=== PATIENT | female | born 1985 | race Hispanic/Latino ===

== ENCOUNTER 2018-10-30 04:38 | Inpatient (IN) | payer OTHER ==
[2018-10-29 13:15] LABS: RPR Titer ND
[2018-10-29 13:20] LABS: Urine Appearance CLEAR; Urine Bilirubin NEGATIVE (NEG); Urine Blood NEGATIVE (NEG); Urine Color YELLOW; Urine Glucose NEGATIVE (NEG); Urine Protein NEGATIVE (NEG); Urine Urobilinogen 0.2 mg/dL (0.2-1.0)
[2018-10-29 13:23] LABS: Absolute Lymphocytes (CBC) 1.2 K/uL (0.7-4.9); Absolute Monocytes 0.5 K/uL (0.1-1.3); Absolute Neutrophil 6.7 K/uL (1.8-8.0); Basophils % 0.3 % (0-1.3); Eosinophils % 0.9 % (0-4.4); Hematocrit 32.5 % (36.0-45.0); Lymphocytes % 14.5 % (15.3-44.8); MPV 9.6 fL (7.6-11.3); Monocytes % 5.5 % (3.3-12.3)
[2018-10-29 13:37] LABS: Protime INR 0.93
[2018-10-29 13:39] LABS: Urine Microscopic Reflex ORDER UMIC
[2018-10-29 13:49] LABS: Urine Bacteria <20 /HPF (<20); Urine Culture Reflex Order REFLEXED; Urine Mucus 2+ /HPF (NONE SEEN); Urine RBC <5 /HPF (NONE SEEN)
--- NOTE | 2018-10-29 15:58 | PREOPHP ---
Date of Admission: 10/30/2018 History Of Present Illness: This is a 33-year-old 3, para 2, will be 39 weeks tomorrow, has been breech to the last 3 visits here in the office, rotation attempt at [facility] offered, but declined. Infection, blood loss, anesthetic complications, injury to bladder, bowel, ureter, postoperative com plications, clots in legs, and pneumonia discussed. The patient knows fully well this does not const itute all the possible problems that could occur during the following surgery. The patient did not t ell us that she had a bilateral cystectomy in [place] in 2005 where they used the incision a nd she was in the hospital for 2 days, benign cyst. Family History: Father with hypertension and diabetes. Allergies: NO ALLERGIES. Medications: vitamins prior to admission. Social History: Does not smoke. Physical Examination: HEENT: Clear. Pupils equal, round, and reactive to light and accommodation. Conjunctivae well perf used. No oral, lingual, or buccal lesions. Chest and Lungs: Clear. Breasts: Not examined. Abdomen: Term size. Baby is still high. I cannot catch it. Cervix is fingertip. Extremities: Clear without edema, cyanosis, or clubbing. Plan: We will get a flat plate of the abdomen tomorrow to verify breech presentation. If it is sandra ch, proceed on with surgery; if not, cancel surgery. ROGELIO/CRISTOBAL Voice ID: [id number]
[2018-10-29 21:55] LABS: RPR (Rapid Plasma Reagin) NON-REACT (NON-REACT)
[~2018-10-30 04:38] MED LIST: Ringers Lactate 1,000 ML IV PRN; Ringers Lactate 1,000 ML IV SCH
[2018-10-30 05:26] VITALS: BP 140/74; TEMP 98.5; BMI 39.6
[2018-10-30] MEDS ORDERED: Ringers Lactate 1,000 ML IV ONE (05:40)
--- NOTE | 2018-10-30 08:48 | RAD REPORT ---
EXAM DESCRIPTION: RAD - Abdomen 1 View (KUB) - 10/30/2018 5:00 am CLINICAL HISTORY: . Assess presentation FINDINGS: in cephalic presentation. Spine maternal left
--- NOTE | 2018-10-30 11:40 | PN ---
The patient was set for today because of breech presentation, however, flat plate of the ab domen demonstrates the baby is vertex. Baby is still extremely high. I cannot reach with my examini ng finger. Cervix is posterior, 1 to 1.5 cm. She is not in labor. The baby looks good. After disc ussion with the patient and family, it is decided that we should not induce as the cervix is very unf avorable and the baby is not in a good position. We will see her back on Monday in my office and dec cece what we should do. She knows that the baby has a very unstable lie and could change back into a breech presentation without her even knowing it, and that if she goes into labor, she is to come up h ere immediately so we can assess the baby's position. Full discussion with the patient and . They are in agreement. Dismissed to report back to my office on Monday, sooner if labor. ROGELIO/CRISTOBAL Voice ID: [id number] Report ID: [id number]
[2018-11-02 04:10] LABS: HBsAG Nonreactive (Nonreactive)
== END 2018-10-30 07:00 | disposition home or self-care (01) | DRG 833 ==
LOC: 2ND-WC 04:38
PROVIDERS: ADMIT Specialist; ATTEND Specialist
DX: O32.1XX0 Maternal care for breech presentation, not applicable or unspecified (principal); Z53.8 Procedure and treatment not carried out for other reasons; Z3A.39 39 weeks gestation of pregnancy
CPT/HCPCS: 36415; 74018; 81003; 81015; 85025; 85610; 85730; 86592; 86900; 86901; 87086; 87088; 87340; 99218

== ENCOUNTER 2018-11-04 04:40 | Inpatient (IN) | payer OTHER ==
[2018-11-04] MEDS ORDERED: Ringers Lactate 1,000 ML IV PRN (05:28)
[2018-11-04] MEDS ORDERED: METHYLERGONOVINE 0.2MG/ML AMP IM PRN (05:28)
[2018-11-04] MEDS ORDERED: Ringers Lactate 1,000 ML IV SCH (06:00)
[2018-11-04 06:15] LABS: RPR Titer ND
[2018-11-04 06:18] LABS: Absolute Lymphocytes (CBC) 1.4 K/uL (0.7-4.9); Absolute Monocytes 0.7 K/uL (0.1-1.3); Basophils % 0.2 % (0-1.3); Eosinophils % 0.6 % (0-4.4); Hematocrit 34.5 % (36.0-45.0); Lymphocytes % 12.5 % (15.3-44.8); MPV 10.3 fL (7.6-11.3); RBC Red Blood Cell Count 3.88 M/uL (3.86-4.86)
[2018-11-04 06:21] LABS: Urine Appearance CLOUDY; Urine Bilirubin NEGATIVE (NEG); Urine Blood 3+ (NEG); Urine Color YELLOW; Urine Glucose NEGATIVE (NEG); Urine Protein NEGATIVE (NEG); Urine Urobilinogen 0.2 mg/dL (0.2-1.0); Urine pH 7.5 (5.0-7.0)
[2018-11-04] MEDS ORDERED: PROMETHAZINE 25 MG/ML VIAL IM PRN (06:33)
[2018-11-04] MEDS ORDERED: BUTORPHANOL 1 MG/ML INJ IV PRN (06:33)
[2018-11-04 06:37] LABS: Urine Microscopic Reflex ORDER UMIC
[2018-11-04 06:45] LABS: Urine Bacteria >50 /HPF (<20); Urine Culture Reflex Order NOT NEEDED
[2018-11-04] MEDS ORDERED: PROMETHAZINE 25 MG/ML VIAL ONE (06:54)
[2018-11-04] MEDS ORDERED: BUTORPHANOL 1 MG/ML INJ ONE (06:54)
[2018-11-04] MEDS ORDERED: OXYTOCIN/LR 20 UNIT/1,000 ML BAG IV SCH ×2 (07:00→12:00)
[2018-11-04 07:01] VITALS: BMI 39.6
[2018-11-04] MEDS ORDERED: ROPIVACAINE HCL 100 ML IV PRN (07:19)
[2018-11-04] MEDS ORDERED: HYDRALAZINE HCL 20 MG/ML VIAL IV ONE (07:30)
--- NOTE | 2018-11-04 07:49 | PREOPHP ---
Date of Admission: 11/04/2018 Shonda Hughes, 33-year-old 3, para 2, 40 weeks 2 days, scheduled for possible induction this we ek. Comes in an early labor. Noted to be 3-1/2 to 4. Baby definitely vertex but still high at -2 s tation. She was francheska every 3 to 4 minutes. That has spaced out. Now Pitocin has been starte d again. At her request, she was given Stadol 1 mg IV, Phenergan 25 mg IM. We need to reinstitute a more active labor pattern. She is Rh positive, immune to Rubella. Negative beta strep screen. Ful l labor talk given. The patient will be requesting epidural once we get into a more active labor and the baby comes down. discussion and talk with and patient. ROGELIO/CRISTOBAL Voice ID: [id number]
[2018-11-04] MEDS ORDERED: FENTANYL CITR 100 MCG/2 ML IV ONE (08:00)
[2018-11-04] MEDS ORDERED: ROPIVACAINE HCL 0.2% 20ML AMP IV ONE (08:00)
[2018-11-04] MEDS ORDERED: LIDOCAINE 1% 20 ML MDV ONE (11:04)
[2018-11-04] MEDS ORDERED: Oxycodone HCl/Acetaminophen 1 TAB TAB PO PRN ×2 (11:27)
[2018-11-04] MEDS ORDERED: ACETAMINOPHEN 500 MG TAB PO PRN (11:27)
[2018-11-04] MEDS ORDERED: DIPHENHYDRAMINE 25 MG TAB/CAP PO PRN (11:27)
[2018-11-04] MEDS ORDERED: DOCUSATE NA/SENNA CONC 1 TAB PO PRN (11:27)
[2018-11-04] MEDS ORDERED: BISACODYL 10 MG RECTAL SUPP RECT PRN (11:27)
[2018-11-04] MEDS ORDERED: CARBOPROST TROME 250 MCG/ML IM ONE (11:36)
[2018-11-04] MEDS ORDERED: miSOPROStol 100 MCG TAB PO ONE (12:40)
[2018-11-04] MEDS ORDERED: OXYTOCIN 10 UNIT/ML ML IV ONE (13:10)
--- NOTE | 2018-11-04 14:02 | PN ---
The patient told nurse her pain level was 8 to 9, so epidural was ordered. Patient has shown no vaughan ge. She is still 3-1/2 to 4. Baby is still very high, -2 station. Baby looks good on the monitor, is starting to wake up from the effects of the Stadol. We will continue to increase the Pitocin unti l we get a good labor pattern and until we get some descent of the vertex. ROGELIO/CRISTOBAL Voice ID: [id number] Report ID: [id number]
[2018-11-04] MEDS ORDERED: miSOPROStol 100 MCG TAB PO SCH (15:00)
[2018-11-04] MEDS: IBUPROFEN 200 MG TAB PO PRN (15:37)
--- NOTE | 2018-11-04 17:16 | OP ---
Surgeon: Mejia Olvera MD Shonda Hughes is a 33-year-old, 3, para 2, at approximately 40 weeks gestation, came in early l abor, 3.5 to 4 on admission. Vertex still high in the pelvis. Membranes bulging, but definitely jayne juju, was given Stadol 1 mg IV, Phenergan 25 mg IM x1. Contractions spaced out somewhat. She was sta rted on Pitocin, and at that point, requested epidural anesthesia, which was instituted by Dr. Wilson. Epidural gave good relief. The patient went rapidly to complete. Spontaneous vaginal delivery of a 7 pounds 14 ounces female. A true knot in the cord, but not tight. I think I detected a slight odo r, but nurses said they could not confirm this. The patient was afebrile and basically normal white count on admission. After approximately 15 minutes, placenta delivered spontaneously, thought to hav e a possible mild marginal abruption, completely intact, sent to Pathology. Estimated blood loss 400 -450 cc. Mild hypertonus. Hemabate ordered and given. Rh positive, immune to Rubella, negative bet a strep screen. Tolerated all procedures well. Final Diagnoses: Term intrauterine at approximately 40 weeks, spontaneous labor, vaginal d elivery, epidural anesthesia, mild uterine hypotonus, possible marginal abruption - minimal. ROGELIO/CRISTOBAL Voice ID: [id number] Report ID: [id number]
[2018-11-04] MEDS: miSOPROStol 100 MCG TAB PO SCH ×2 (19:08→23:02)
--- NOTE | 2018-11-04 23:12 | OP ---
Surgeon: Mejia Olvera MD I was called by the nurses said that the lochia is a bit heavier than she liked. I ordered Cytotec 1 00 mcg to be given prior to my getting there and an epidural to be reinstituted. When I got to labor and delivery, the patient was quite stable. Lochia is a little bit heavier than normal and still qu ite dark. The patient was given 5 cc of ropivacaine into her epidural catheter, 2 g of Ancef was ord ered, prepping and draping was performed. Again, no laceration seen. Intrauterine exam demonstrated a large organized clot sitting in a cervical os and the canal. This was removed manually. Uterus w as explored. No further tissue was seen. Good hemostasis. Uterus contracted down well. We will ke ep the patient on IV little bit longer than normal, start her on p.o. Cytotec and monitor carefully. I think this should take care of the bleeding, which I only saw about 150 cc more from the time of sharla baron. Pulse is in the 70-80 range. Blood pressures are normal. She is quite stable. ROGELIO/CRISTOBAL Voice ID: [id number] Report ID: [id number]
[2018-11-05] MEDS: miSOPROStol 100 MCG TAB PO SCH (03:13)
[2018-11-05] MEDS: IBUPROFEN 200 MG TAB PO PRN (03:14)
[2018-11-05] MEDS ORDERED: Ringers Lactate 1,000 ML IV ONE (07:22)
[2018-11-05 12:21] VITALS: BP 138/77; TEMP 98.2
[2018-11-06 00:34] LABS: RPR (Rapid Plasma Reagin) NON-REACT (NON-REACT)
--- NOTE | 2018-11-06 05:45 | DS ---
Hospital Course: A 33-year-old 3, para 2, came in, in spontaneous labor at approximately 40 weeks, delivered uneventfully a 7 pounds 14 ounce female, Apgars 9 and 9. No episiotomy. No lacerat ion. Schultze delivery of the placenta which was inspected, possibly marginal small abruption, mild uterine hypotonus, 0.2. Hemabate given as the patient's blood pressures were initially elevated on a dmission. Estimated blood loss 400 to 450 cc. Placenta sent to Pathology. , the patient was noted to have a continued small amount of bleeding more than normal. I w as called back. After injecting the epidural, we then examined again, no lacerations. Intrauterine exam showed a large organized clot in the cervical os and canal. This was removed. Intrauterine exa m showed no retained products. Uterus contracted down well. The patient has done well since then. She is afebrile, ambulating, voiding. Lochia is normal. She is Rh positive, immune to Rubella. Neg ative beta strep screen. She was given Ancef after intrauterine exam. Tdap has been administered du ring the . She was dismissed later today to report back to my office in 6 weeks for followu p, to report any temperature elevation of 100 degrees or greater, severe pain, heavy bleeding, or any other type of abnormalities. Dismissed with tramadol for analgesia, although she may elect to take Motrin instead. Final Diagnoses: Term intrauterine at approximately 40 weeks, vaginal delivery, epidural a nesthesia, mild uterine hypotonus, organized clot in the cervical os with exam under epidural anesthe mandy, and period. ROGELIO/CRISTOBAL Voice ID: [id number] Report ID: [id number]
[2018-11-08 03:43] LABS: HBsAG Nonreactive (Nonreactive)
== END 2018-11-05 14:15 | disposition home or self-care (01) | DRG 768 ==
LOC: L&D 04:40 → 2ND-WC 05:39
PROVIDERS: ADMIT Specialist; ATTEND Specialist
PROC: 10E0XZZ Delivery of Products of Conception, External Approach (ICD-10-PCS; principal; 2018-11-04)
PROC: 0UCC7ZZ Extirpation of Matter from Cervix, Via Natural or Artificial Opening (ICD-10-PCS; 2018-11-04)
DX: O69.2XX0 Labor and delivery complicated by other cord entanglement, with compression, not applicable or unspecified (principal); Z37.0 Single live birth; O62.2 Other uterine inertia; Z3A.40 40 weeks gestation of pregnancy
CPT/HCPCS: 36415; 81003; 81015; 85025; 86592; 86850; 86900; 86901; 87340; 88307; J0595; J2210; J2550; J2590; J2795; J3010

== ENCOUNTER 2021-06-20 04:33 | Inpatient (IN) | payer OTHER ==
--- OUTSIDE RECORDS SUMMARY | 2021-06-20 05:33 | XMS REPORT | Continuity of Care Document ---
:1985 Author Organization [facility] [place] t Address [address] [place] [address] Dr. [address]. [address] [place] [address] Care Team Providers Name Role Phone Pcp, Does Not Have A Primary Care Physician Sathish HOLLINGSWORTH R Attending Clinician Unavailable NAJMA Attending Clinician Unavailable Mushtaq MENDENHALL Attending Clinician Unavailable Jasen Bridges MD Attending Clinician JASEN BRIDGES Attending Clinician Unavailable Doctor Unassigned, Name Attending Clinician Unavailable Mushtaq Barroso Attending Clinician Lab Attending Clinician Unavailable Payers Payer Name Policy Type Policy Number Effective Date Expiration Date S gordo [place] [id number] 2020 00:00:00 MEDICAID PENDING PENDING 2020 00:00:00 [facility] [id number] 2020 00:00:00 Advance Directives Directive Decision Effective Termination Comments Source Date Date Healthcare Agents on N/A [facility] FileNameRelationHu [facility] Agent Medical RelationshipCommunicationFerselect specialty hospital-pontiaco [facility] PhoenixnandezSaint [facility] Dover[facility] Care [phone] (Mobile) Romana TracytherFir [facility] [phone] (Mobile) Problems Condition Condition Condition Status Onset Resolution Last Treating Co mments Source Name Details Category Date Date Treatment Clinician Date History of History of Disease Active Overview : Univers 4-23 At 35 ity of delivery delivery 00:00: weeks due Robert as 00 to [facility] Medical Branch Abnormal Abnormal Disease Active Overview: Un ira maternal maternal 9-17 Passed ity of glucose glucose 00:00: early 3hr [place] tolerance, tolerance, 00 gtt Me dical antepartum antepartum Br anch History of History of Disease Active U nivers 9-14 ity of induced induced 00:00: [place] hypertensi hypertensi 00 Me dical on on Branch Multiparit Multiparit Disease Active U nivers y y 9-14 ity of 00:00: [place] 00 Medical Branch Supervisio Supervisio Disease Active U nivers n of n of 9-14 ity of high-risk high-risk 00:[place] Medi jayesh of elderly of elderly Br anch multigravi multigravi da da Obesity Obesity Disease Active Overview: Univ ers affecting affecting 8-26 ICD10 ity of 00:00: Diagnosis [place] 00 Term Medical Mail Distribution Clerk Branch Utility Supervisio Supervisio Disease Active Overview : Univers n of n of 8-26 Pap-NIL ity of normal normal 00:00: with [place] 00 absent [facility] ECC. Branch Repeat postpartu m. Body mass Body mass Disease Active 2006-07 Overview: Univers index index 2-26 Formattin ity of (BMI)30.0- (BMI)30.0- 00:00: g of this [place] 30.9, 30.9, 00 note Medical adult adult might be Branch different from the original. ICD10 Diagnosis Term Mail Distribution Clerk Utility Allergies, Adverse Reactions, Alerts Allergy Allergy Status Severity Reaction(s) Onset Inactive Treating Comm ents Source Name Type Date Date Clinician NO KNOWN Drug Active Univers ALLERGIE Class ity of S [facility] Social History Social Habit Start Date Stop Date Quantity Comments Source ASSERTION 2020-10-10 University of 00:00:00 [facility] Exposure to Not sure [facility] SARS-CoV-2 [facility] (event) Branch Alcohol intake 2020-12-30 2020-12-30 Current University of 00:00:00 00:00:00 non-drinker of [facility] alcohol Branch (finding) Tobacco use and 2013-03-11 2013-03-11 Never used Universit y of exposure 00:00:00 00:00:00 [facility] Sex [birth year] At [birth year] Universit y of 00:00:00 00:00:00 [facility] Smoking Status Start Date Stop Date Source Never smoker [facility] Medications Ordered Filled Start Stop Current Ordering Indication Dosage Frequency Signature Comments Components Source Medication Medication Date Date Medication? Clinician (SIG) Name Name aspirin 81 Yes [id number] 81mg Take 1 U nivers mg EC 6-16 tablet by ity of tablet 00:00: mouth [place] 00 daily. Medical Branch aspirin 81 Yes [id number] 81mg Take 1 U nivers mg EC 6-16 tablet by ity of tablet 00:00: mouth [place] 00 daily. [facility] Branch aspirin 81 0 Yes [id number] 81mg Take 1 U nivers mg EC 6-16 tablet by ity of tablet 00:00: mouth [place] 00 daily. [facility] PNV 67-iron Yes [id number] 1{each} Take 1 Univers ps-folate 5-21 Each by ity of no.1-dha 00:00: mouth [place] (VITAFOL 00 daily. Medical ULTRA) 29 Branch mg iron- 1 mg-200 mg Cap PNV 67-iron Yes [id number] 1{each} Take 1 Univers ps-folate 5-21 Each by ity of no.1-dha 00:00: mouth [place] (VITAFOL 00 daily. Medical ULTRA) 29 Branch mg iron- 1 mg-200 mg Cap PNV 67-iron Yes [id number] 1{each} Take 1 Univers ps-folate 5-21 Each by ity of no.1-dha 00:00: mouth [place] (VITAFOL 00 daily. Medical ULTRA) 29 Branch mg iron- 1 mg-200 mg Cap PNV 67-iron Yes [id number] 1{each} Take 1 Univers ps-folate 5-21 Each by ity of no.1-dha 00:00: mouth [place] (VITAFOL 00 daily. Medical ULTRA) 29 Branch mg iron- 1 mg-200 mg Cap PNV 67-iron Yes [id number] 1{each} Take 1 Univers ps-folate 9-14 Each by ity of no.1-dha 00:00: mouth [place] (VITAFOL 00 daily. Medical ULTRA) 29 Branch mg iron- 1 mg-200 mg Cap PNV 67-iron 2017-1- No [id number] 1{each} Take 1 Univers ps-folate 9-14 - Each by ity of no.1-dha 00:00: 00:00 mouth [place] (VITAFOL 00 :00 daily. Medical ULTRA) 29 Branch mg iron- 1 mg-200 mg Cap Yes [id number] 1{tbl} Take 1 Tab Univers multivitami 8-26 by mouth ity of n ( 00:00: [place]. [place] VITAMIN) 00 Medical tablet Branch clotrimazol Yes [id number] 1{appli Insert 1 Univers e 2 % Crea 03-11 cator} Applicator i ty of 00:00: into [place] 00 vagina at Medical bedtime. Branch 2020- No [id number] 1{tbl} Take 1 Tab Univers multivitami 03-11 by mouth ity of n ( 00:00: 00:00 daily. Robert as VITAMIN) 00 :00 Medical tablet Branch clotrimazol 2020- No [id number] 1{appli Insert 1 Univers e 2 % Crea 03-11 cator} Applicator ity of 00:00: 00:00 into [place] 00 :00 vagina at Medical bedtime. Branch No known No Univers medications ity [facility] No known No [facility] Immun[facility] Ordered Filled Immunization Date Status Comments Sourc e Immunization Name Name Influenza Virus 2020-06-26 Completed Universit y of Vaccine 00:00:00 [facility] TDAP 2018-08-02 Completed University of 00:00:00 [facility] TDAP 2013-10-23 Completed University of 00:00:00 [facility] Influenza Virus 2013-05-14 Completed Universit y of Vaccine 00:00:00 [facility] TDAP 2012-03-11 Completed University of 00:00:00 [facility] TDAP 2012-03-11 Completed University of 00:00:00 [facility] TDAP 2012-03-11 Completed University of 00:00:00 [facility] TDAP 2012-03-11 Completed University of 00:00:00 [facility] TDAP 2012-03-11 Completed University of 00:00:00 [facility] Branch TDAP 2012-03-11 Completed University of 00:00:00 [facility] Branch TDAP 2012-03-11 Completed University of 00:00:00 [facility] Branch TDAP 2012-03-11 Completed University of 00:00:00 [facility] Branch Hep B, Adol or Pedi 2011-11-24 Completed Unive rsity of Dosage 00:00:00 [facility] HEPATITIS A 2011-10-25 Completed University of 00:00:00 [facility] Branch Hep B, Adol or Pedi 2011-10-25 Completed Unive rsity of Dosage 00:00:00 [facility] Branch TDAP 2011-10-25 Completed University of 00:00:00 [facility] Rubella 2007-03-02 Completed University of 00:00:00 [facility] Rubella 2007-03-02 Completed University of 00:00:00 [facility] Rubella 2007-03-02 Completed University of 00:00:00 [facility] Rubella 2007-03-02 Completed University of 00:00:00 [facility] Rubella 2007-03-02 Completed University of 00:00:00 [facility] Branch Rubella 2007-03-02 Completed University of 00:00:00 [facility] Branch Rubella 2007-03-02 Completed University of 00:00:00 [facility] Branch Rubella 2007-03-02 Completed University of 00:00:00 [facility] Td 1999-08-04 Completed University of 00:00:00 [facility] MMR 1997-03-31 Completed University of 00:00:00 [facility] DTAP 1989-08-30 Completed University of 00:00:00 [facility] Polio (IPV/OPV) 1989-08-30 Completed Universit y of 00:00:00 [facility] MMR 1988-06-30 Completed University of 00:00:00 [facility] DTAP 1986-12-25 Completed University of 00:00:00 [facility] Branch Polio (IPV/OPV) 1986-12-25 Completed Universit y of 00:00:00 [facility] DTAP 1986-06-30 Completed University of 00:00:00 [facility] DTAP 1986-04-25 Completed University of 00:00:00 [facility] Polio (IPV/OPV) 1986-04-25 Completed Universit y of 00:00:00 [facility] Branch DTAP 1985 Completed University of 00:00:00 [facility] Branch Polio (IPV/OPV) 1985 Completed Universit y of 00:00:00 [facility] Vital Signs Vital Name Observation Time Observation Value Comments Source Systolic blood 2020-12-30 19:11:00 117 mm[Hg] Univer sity of pressure [place] [facility] Diastolic blood 2020-12-30 19:11:00 78 mm[Hg] Unive rsity of pressure [place] [facility] Heart rate 2020-12-30 19:11:00 73 /min Universi ty of [place] [facility] Body temperature 2020-12-30 19:11:00 36.94 Keisha Univ ersity of [place] [facility] Respiratory rate 2020-12-30 19:11:00 18 /min Univ ersity of [place] [facility] Body height 2020-12-30 19:11:00 160 cm Universi ty of [place] [facility] Body weight 2020-12-30 19:11:00 92.08 kg Universi ty of [place] [facility] BMI 2020-12-30 19:11:00 35.96 kg/m2 Universi ty of [place] [facility] Systolic blood 2020-12-04 19:22:00 123 mm[Hg] Univer sity of pressure [place] [facility] Diastolic blood 2020-12-04 19:22:00 81 mm[Hg] Unive rsity of pressure [place] [facility] Heart rate 2020-12-04 19:22:00 81 /min Universi ty of [place] [facility] Body temperature 2020-12-04 19:22:00 37 Keisha Univ ersity of [place] [facility] Respiratory rate 2020-12-04 19:22:00 16 /min Univ ersity of [place] [facility] Body height 2020-12-04 19:22:00 160 cm Universi ty [facility] [place] [facility] Body weight 2020-12-04 19:22:00 90.067 kg [facility]i ty [facility] [place] [facility] BMI 2020-12-04 19:22:00 35.17 kg/m2 Universi ty [facility] [place] [facility] Systolic blood 2020-11-06 20:02:00 114 mm[Hg] Univer sity of pressure [place] [facility] Diastolic blood 2020-11-06 20:02:00 73 mm[Hg] Unive rsity of pressure [place] [facility] Heart rate 2020-11-06 20:02:00 72 /min [facility] Body temperature 2020-11-06 20:02:00 37.33 Keisha [facility] Res[facility] rate 2020-11-06 20:02:00 16 /min [facility] Body height 2020-11-06 20:02:00 160 cm [facility] Body weight 2020-11-06 20:02:00 87.816 kg [facility] BMI 2020-11-06 20:02:00 34.29 kg/m2 [facility] Procedures Procedure Date / Time Performed Performing Clinician [facility] e <14 WEEKS US 2020-12-30 19:48:17 Adan Bridges [facility] C CONSULTANT CLINIC 2020-12-30 05:01:00 Doctor Un[facility]igned[facility] ULTR[facility] Name [facility] POCT URINALYSIS W/O 2020-12-30 00:00:00 Adan Bridges [facility] POCT URINALYSIS 2020-12-04 19:27:00 Romina Mendenhall [facility] POCT TEST 2020-11-06 19:52:00 Romina Mendenhall [facility] POCT URINALYSIS W/O 2020-11-06 19:52:00 Romina Mendenhall Uni [facility] CONSENT/REFUSAL FOR 2020-11-06 19:24:15 Doctor [facility]igned, [facility] Name [facility] TREATMENT Encounters Start End Encounter Admission Attending Care Care Encounter Source Date/Time Date/Time Type Type Clinicians Facility Department ID 2021-05-03 2021-05-03 Case Rehana Bowerteresa [id number] Univers 00:00:00 00:00:00 Management Roseline Nelson [id number] itJennifer [id number] Ck blevins [id number] [facility] 086 Branch 2021-02-10 2021-02-10 Outpatient R [facility] [id number] Univers 13:00:00 13:00:00 [id number] ity of [facility] 2021-01-27 2021-01-27 Outpatient R NAJMA [facility] [id number] Univers 13:45:00 13:45:00 NOA [id number] ity of [facility] 2021-01-01 2021-01-01 Outpatient R AKINED, [facility] [id number] Univers 14:00:00 14:00:00 ROMINA [id number] ity o f [facility] 2021-01-01 2021-01-01 Outpatient R ALMA DELIA, [facility] [id number] Univers 14:00:00 14:00:00 ROMINA ity o f [facility] 2020-12-30 2020-12-30 Initial Adan Bridges [facility] [id number] Univers 13:56:58 15:01:05 Cam Jason [id number] ity of Visit [place] [id number] [place] [phone] [address] 2020-12-30 2020-12-30 Outpatient R ADAN BRIDGES [facility] [id number] Univers 14:00:00 14:00:00 [id number] ity of [facility] 2020-12-30 2020-12-30 Outpatient R ADAN BRIDGES [facility] [id number] Univers 14:00:00 14:00:00 ity of [facility] 2020-12-30 2020-12-30 Orders Doctor FELICITA [id number] Univers 00:00:00 00:00:00 Only Unassigned, RENETTA [id number] ity of [place] [facility] [id number] Robert as [phone] [address] 2020-12-04 2020-12-04 [facility] [id number] Univers 14:06:02 14:57:47 Romina Landin C CONSULTANT [id number] ity of Visit [facility] [id number] Robert as MATERNAL [phone] [facility] & [address] 2020-12-04 2020-12-04 [facility] [id number] Univers 14:00:00 14:00:00 ROMINA [id number] ity o [facility] 2020-12-04 2020-12-04 [facility] [id number] Univers 14:00:00 14:00:00 ROMINA ity o [facility] 2020-11-12 2020-11-12 Plasma Center Technician Lab, [facility] [id number] Univers 13:33:22 13:42:25 Visit Romina Mendenhall C CONSULTANT [id number]. 10 ity of REGIONAL [id number] Robert as MATERNAL [id number] [facility] & CHILD [address] [place] [address] 2020-11-12 2020-11-12 Outpatient R [facility] [id number] Univers 13:30:00 [facility]30[facility] 2020-11-12 2020-11-12 Outpatient [facility] [id number] Univers 13:00:00 13:00:00 [id number] ity [facility] 2020-11-06 2020-11-06 [facility] [id number] Univers 14:35:55 16:02:01 Romina Landin C CONSULTANT [id number] ity of Visit REGIONAL [id number] Robert as MATERNAL [id number] [address] 2020-11-06 2020-11-06 Outpatient R [facility] [id number] Univers 14:00:00 14:00:00 [id number] ity [facility] 2020-11-06 2020-11-06 [facility] [id number] Univers 14:00:00 14:00:00 ROMINA mary o [facility] 2020-11-06 2020-11-06 Orders Doctor FELICITA [id number] Univers 00:00:00 00:00:00 Only Unassigned, RENETTA [id number] ity of [facility] [id number] Robert as [id number] [place] [address] Branch Results Test Description Test Time Test Comments Results Result Sourc e Comments <14 WEEKS US 2020-12-30 - Limited USG Universit y of LIMITED 19:49:37 for FHT: ?Single [place] [facility] live IUP Branch measured 13 4/7 weeks, consistent with LMP. ?Will date by Patient's last menstrual period was 09/26/2020 (exact date). unless clinically indicated otherwise Adan Bridges MD ?12/30/2020 ?2:49 PM POCT URINALYSIS W/O SPECIFIC GRAVITY 2020-12-30 19:22:00 Test Item Value Reference Range Interpretation Comme nts POCT PH U (test code = 3254) N/A 5-8 POCT U LEUK EST (test code = 3263) N/A Negative - Negative POCT U NIT (test code = 3262) N/A Negative - Negative POCT U PROT (test code = 3259) Negative Negative - Negative POCT U GLU (test code = 3256) Negative Negative - Negative POCT U KETONE (test code = 3258) N/A Negative - Negative POCT U BLD (test code = 3257) N/A Negative - Negative [facility] W SPECIFIC [id number] 19:27:00 Test Item Value Reference Range Interpretation Comments POCT U SP GRAV (test code = 3255) . 1.005-1.025 POCT PH U (test code = 3254) . 5-8 POCT U LEUK EST (test code = 3263) . Negative - Negative POCT U NIT (test code = 3262) . Negative - Negative POCT U PROT (test code = 3259) Trace Negative - Negative POCT U GLU (test code = 3256) neg Negative - Negative POCT U KETONE (test code = 3258) . Negative - Negative POCT U UROBILI (test code = 3260) . 0.2-1 POCT U BILI (test code = 3261) . Negative - Negative POCT U BLD (test code = 3257) . Negative - Negative POCT U COLOR (test code = 3266) POCT U APPEAR (test code = 3267) [facility] UR[facility] W/O SPECIFIC [id number] 19:54:00 Test Item Value Reference Range Interpretation Comments POCT PH U (test code = 3254) 5 mg/dl 5-8 POCT U LEUK EST (test code = trace Negative - Negative 3263) POCT U NIT (test code = 3262) neg Negative - Negative POCT U PROT (test code = 3259) neg Negative - Negative POCT U GLU (test code = 3256) neg Negative - Negative POCT U KETONE (test code = 3258) neg Negative - Negative POCT U BLD (test code = 3257) large Negative - Negative Lab Interpretation (test code = Abnormal 33938-3) [facility] [id number] 19:52:00 Test Item Value Reference Range Interpretation Comments POCT PREG (test code = 1605) Positive On board controls acceptable with C Yes Line (test code = 3574) POCT PREG LOT # (test code = 3575) POCT PREG TEST DATE (test code = 3576) Lab Interpretation (test code = Normal 25039-0) [facility]
[2021-06-20] MEDS ORDERED: CARBOPROST TROME 250 MCG/ML IM PRN ×2 (05:45→12:06)
[2021-06-20] MEDS ORDERED: BUTORPHANOL 1 MG/ML INJ IV PRN (05:45)
[2021-06-20] MEDS ORDERED: Ringers Lactate 1,000 ML IV PRN (05:45)
[2021-06-20] MEDS ORDERED: PROMETHAZINE INJ 25 MG/ML AMP IM PRN (05:45)
[2021-06-20] MEDS ORDERED: Ringers Lactate 1,000 ML IV SCH (06:00)
[2021-06-20] MEDS ORDERED: OXYTOCIN/LR 20 UNIT/1,000 ML BAG IV SCH ×3 (06:00→13:00)
[2021-06-20 06:08] VITALS: BMI 40.7
[2021-06-20 06:09] LABS: Absolute Lymphocytes (CBC) 1.6 K/uL (0.7-4.9); Basophils % 0.6 % (0-1.3); Hematocrit 32.9 % (36.0-45.0); Lymphocytes % 16.9 % (15.3-44.8); MPV 10.3 fL (7.6-11.3); RBC Red Blood Cell Count 3.87 M/uL (3.86-4.86)
[2021-06-20 06:13] LABS: Urine Appearance CLEAR (Clear); Urine Bilirubin NEGATIVE (Negative); Urine Blood 3+ (Negative); Urine Color YELLOW (Yellow); Urine Glucose NEGATIVE (Negative); Urine Protein NEGATIVE (Negative); Urine Specific Gravity 1.015 (1.005-1.030)
[2021-06-20 06:35] LABS: Urine Microscopic Reflex ORDER UMIC
[2021-06-20 06:40] LABS: Urine Bacteria 20-50 /HPF (<20); Urine RBC >50 /HPF (NONE SEEN)
--- NOTE | 2021-06-20 06:52 | PREOPHP ---
Date of Admission: 06/20/2021 History Of Present Illness: This is a 36-year-old, 4, para 3, 38 weeks and 6 days, came in e bobbi labor, noted to be 4 cm, francheska regularly. Initial blood pressures were slightly elevated in the 140 systolic range, but there was no edema, no hyperreflexia, no PERFORMANCE MANAGEMENT CONSULTANT symptoms, and urine prote in is negative. Family History: Father with hypertension. Father with diabetes. Otherwise noncontributory. Past Medical History: No serious medical illnesses. Past Surgical History: No surgery. Allergies: NO ALLERGIES. Medications: vitamins prior to admission. Social History: Does not smoke. Physical Examination: HEENT: Clear. Pupils equal, round, reactive to light and accommodation. Conjunctivae well perfused . No oral, lingual, or buccal lesions. Chest and Lungs: Clear. Heart: Without murmurs, thrills, heaves, or rubs. Abdomen: Term size. Extremities: Clear without edema, cyanosis, or clubbing. Pelvic exam: Done by nurse shows 4 cm. Assessment And Plan: The patient is getting blood drawn at this time. I will check her again after the blood has been drawn. and labor talk given. Anticipate delivery sometime later this m chencho. ROGELIO/CRISTOBAL Voice ID: [id number]
--- NOTE | 2021-06-20 07:19 | PN ---
The patient was started on a bolus of fluids in preparation for the epidural; however, my exam shows the patient is 4 cm very posterior and the baby is extremely high at -3 station. It is vertex, but e xtremely high. We need to contractions and get the baby down lower so that the baby does not have a chance to flip again into a breech position. FHTs are normal and reactive. Start Pitocin and to get descent of the baby. NBC/MODL Voice ID: [id number] Report ID: [id number]
[2021-06-20 08:34] LABS: Blood Morphology Comment NOT SEEN (NOT SEEN); Platelet Estimate ADEQ
--- NOTE | 2021-06-20 08:41 | RAD REPORT ---
EXAM DESCRIPTION: RAD - Abdomen 1 View (KUB) - 06/20/2021 8:34 am CLINICAL HISTORY: 38+6 weeks . Check for presentation. COMPARISON: OB Complete dated 05/25/2021 FINDINGS: Single cephalic presenting gestation with spine to the maternal left. No maternal bowel abnormality seen.
[2021-06-20] MEDS ORDERED: LABETALOL 20 MG/4ML SYRINGE IV ONE (11:00)
[2021-06-20] MEDS ORDERED: ROPIVACAINE HCL 0 ML EP ONE (11:19)
[2021-06-20] MEDS ORDERED: FENTANYL CITR 100 MCG/2 ML IV ONE (11:22)
[2021-06-20] MEDS ORDERED: ROPIVACAINE HCL 0.2% 20ML AMP IV ONE (11:22)
[2021-06-20] MEDS ORDERED: DOCUSATE NA/SENNA CONC 1 TAB PO PRN (12:06)
[2021-06-20] MEDS ORDERED: ACETAMINOPHEN 500 MG TAB PO PRN (12:06)
[2021-06-20] MEDS ORDERED: Oxycodone HCl/Acetaminophen 1 TAB TAB PO PRN (12:06)
[2021-06-20] MEDS ORDERED: DIPHENHYDRAMINE 25 MG TAB/CAP PO PRN (12:06)
[2021-06-20] MEDS ORDERED: BISACODYL 10 MG RECTAL SUPP PR PRN (12:06)
[2021-06-20] MEDS: Oxycodone HCl/Acetaminophen 1 TAB TAB PO PRN ×2 (12:46→17:48)
[2021-06-20] MEDS: IBUPROFEN 200 MG TAB PO PRN (15:04)
[2021-06-20] MEDS ORDERED: miSOPROStoL 100 MCG TAB PO PRN (17:13)
[2021-06-20 23:45] LABS: RPR (Rapid Plasma Reagin) NON-REACT (NON-REACT)
[2021-06-21] MEDS: IBUPROFEN 200 MG TAB PO PRN ×2 (00:15→09:42)
[2021-06-21 07:28] VITALS: TEMP 97.9
--- NOTE | 2021-06-21 08:15 | DS ---
Hospital Course: 36-year-old 4, para 3, 38 weeks 6 days, came in early labor. Subsequently delivered an 2-gggee-4-ounce female, Apgars 9 and 9. No episiotomy. No laceration. Caro chaney of the placenta, which inspected and noted to be heavily calcified, but otherwise normal and compl ete. Mild uterine hypertonus. 250 mcg of Hemabate given. Uterus contracted down well thereafter. Estimated blood loss 400 cc. Rh positive. Immune to rubella. Negative strep. Negative COVID. Pos tpartum afebrile, ambulating, voiding. Lochia is normal. She has had several blood pressures that w ere slightly elevated, but I do not believe she has preeclampsia. There is no hyperreflexia. There is no edema. Protein was negative in the urine. Last reading was in the normal range. She has no c omplaints or problems this morning. Pediatrics will examine the baby and then when the baby is dismi ssed, she will be dismissed probably sometime early this afternoon. She is to call my office for an appointment during the next 6 weeks. If she has any problems, fever, pain, bleeding, to come to the office. Tdap and flu shots. The patient has already had COVID shots. She knows if she wishes she c an get at any time at the local pharmacy. Final Diagnoses: Term intrauterine 38 weeks 6 days, spontaneous labor, vaginal delivery, m ild uterine hypertonus. ROGELIO/CRISTOBAL Voice ID: [id number] Report ID: [id number]
[2021-06-21 11:58] VITALS: BP 134/72
--- NOTE | 2021-06-21 12:27 | OP ---
Surgeon: Mejia Olvera MD Shonda Hughes, 36-year-old 4, para 3, all females including this , came in at 38 weeks 6 days in early labor, 4 cm on admission. During the first stage of labor, she received Stadol 1 mg IV, 25 mg Phenergan IM. Baby was noted to be vertex, but extremely high in the pelvis at 6 cm. Pat ient ruptured membranes. Reported very light meconium. To me, it looks like normal fluid. The rafael ent went rapidly to complete, second stage of about 10-15 minutes. Spontaneous vaginal delivery of a n 8 pound 2 ounce female, Apgars 9 and 9. No episiotomy. No laceration. Schultze delivery of the p lacenta, which inspected and noted to be intact and normal. Heavily calcified. Mild uterine hyperto nus. 250 mg of Hemabate given. 400 cc estimated blood loss. Uterus contracted down well. Strep ne gative. Rh positive. Immune to Rubella. Final Diagnoses: Term intrauterine 38 weeks 6 days, spontaneous labor, vaginal delivery, m ild uterine hypotonus. ROGELIO/CRISTOBAL Voice ID: [id number] Report ID: [id number]
[2021-06-21] MEDS ORDERED: IBUPROFEN 600 MG TAB PO PRN (13:14)
[2021-06-24 03:52] LABS: HBsAG Nonreactive (Nonreactive)
== END 2021-06-21 13:31 | disposition home or self-care (01) | DRG 807 ==
LOC: L&D 04:33 → 2ND-WC 05:29
PROVIDERS: ADMIT Specialist; ATTEND Specialist
PROC: 10E0XZZ Delivery of Products of Conception, External Approach (ICD-10-PCS; principal; 2021-06-20)
DX: O62.2 Other uterine inertia (principal); Z37.0 Single live birth; Z3A.38 38 weeks gestation of pregnancy; Z20.822 Contact with and (suspected) exposure to COVID-19
CPT/HCPCS: 36415; 74018; 81003; 81015; 85025; 86592; 86850; 86900; 86901; 87086; 87088; 87340; J0595; J2550; J2590; J2795; J7120; U0003